=== PATIENT | female | born 1950 | race Caucasian/White ===

== ENCOUNTER 2018-05-08 10:03 | Observation (INO) | payer MEDICARE, OTHER ==
[~2018-05-08] VITALS: Ht 157.5 cm; Wt 70.8 kg
[~2018-05-08 10:03] MED LIST: ASPI-496 PO; BACL-19 PO; CAFF200T38 PO; CALC1TAB86 PO; CHOL10003 PO; HYDR-3240 PO; LOVA40TA2 PO; PANT20TA3 PO; POTA99TA2 PO
[2018-05-08] MEDS ORDERED: KETOROLAC 30 MG/1 ML ONE (10:20)
[2018-05-08] MEDS ORDERED: DIAZEPAM 5 MG TABLET ONE (10:20)
[2018-05-08] MEDS ORDERED: KETOROLAC 30 MG/1 ML IV ONE (10:30)
[2018-05-08] MEDS ORDERED: DIAZEPAM 5 MG TABLET PO ONE (10:30)
[2018-05-08] MEDS ORDERED: KETOROLAC 30 MG/1 ML IM ONE (10:30)
[2018-05-08] MEDS ORDERED: SODIUM CHLORIDE FLUSH 10ML SYR IVF ONE (12:00)
[2018-05-08] MEDS ORDERED: ONDANSETRON ODT 4 MG PO ONE (12:00)
[2018-05-08] MEDS ORDERED: ONDANSETRON ODT 4 MG ONE (12:19)
[2018-05-08] MEDS ORDERED: MORPHINE SULFATE 4 MG/ML, 1ML ONE ×2 (12:20→13:01)
[2018-05-08] MEDS: MORPHINE SULFATE 4 MG/ML, 1ML IVPush PRN ×2 (12:22→13:02)
[2018-05-08 13:10] LABS: CULTURE INDICATED? YES; MICROSCOPIC INDICATED
[2018-05-08 14:21] LABS: ALBUMIN 3.7 g/dL (3.4-5.0); ANION GAP 5 mmol/L (5-15); BASOPHILS # (AUTO) 0.04 x10^3/uL (0-0.1); BASOPHILS % (AUTO) 0 % (0-1); CHLORIDE 106 mmol/L (98-107); EOSINOPHILS # (AUTO) 0.09 x10^3/uL (0-0.4); EOSINOPHILS % (AUTO) 1 % (1-7); LYMPHOCYTES # (AUTO) 1.75 x10^3/uL (1-3.4); LYMPHOCYTES % (AUTO) 17 % (22-44); MD NO; MEAN CORPUSCULAR HEMOGLOBIN 32.4 pg (27.0-34.8); MEAN CORPUSCULAR HGB CONC 34.1 g/dL (32.4-35.8); MEAN CORPUSCULAR VOLUME 94.9 fL (80-100); MEAN PLATELET VOLUME 7.9 fL (7.4-10.4); MONOCYTES # (AUTO) 0.48 x10^3/uL (0.2-0.8); MONOCYTES % (AUTO) 5 % (2-9); NEUTROPHILS # (AUTO) 8.26 x10^3/uL (1.8-6.8); NEUTROPHILS % (AUTO) 78 % (42-75); PLATELET COUNT 250 x10^3/uL (130-400); RED BLOOD COUNT 4.42 x10^6/uL (3.82-5.3); RED CELL DISTRIBUTION WIDTH 12.2 % (9.6-15.2)
[2018-05-08 14:22] LABS: CREATININE 1.23 mg/dL (0.55-1.02)
[2018-05-08 14:47] VITALS: BP 130/77
[2018-05-08] MEDS ORDERED: hydrALAzine 20 MG/ML, 1ML IVPush PRN (15:00)
[2018-05-08] MEDS: HEPARIN 5,000 UNITS/ML, 1ML SQ SCH (15:13)
[2018-05-08] MEDS: OXYcodone IR 5MG TABLET PO PRN ×2 (15:13→19:54)
[2018-05-08] MEDS: SODIUM CHLORIDE 0.9% 1,000 ML IV SCH (15:13)
[2018-05-08] MEDS ORDERED: PHENAZOPYRIDINE 100 MG TABLET PO PRN (16:00)
[2018-05-08 16:08] VITALS: BP 130/77
[2018-05-08 18:51] VITALS: BP 96/57
[2018-05-08] MEDS: LOVASTATIN 40 MG TABLET PO SCH (20:51)
[2018-05-08] MEDS: TRIMETHOPRIM 100 MG TABLET PO SCH (20:51)
[2018-05-08] MEDS: CHOLECALCIFEROL 1,000 UNIT TABLET PO SCH (20:51)
[2018-05-09] MEDS: HEPARIN 5,000 UNITS/ML, 1ML SQ SCH ×3 (00:38→16:48)
[2018-05-09] MEDS: SODIUM CHLORIDE 0.9% 1,000 ML IV SCH (00:38)
[2018-05-09] MEDS: OXYcodone IR 5MG TABLET PO PRN ×4 (00:38→23:14)
[2018-05-09 01:42] VITALS: BP 98/61
[2018-05-09 06:07] LABS: BASOPHILS # (AUTO) 0.05 x10^3/uL (0-0.1); BASOPHILS % (AUTO) 1 % (0-1); EOSINOPHILS % (AUTO) 3 % (1-7); LYMPHOCYTES # (AUTO) 1.84 x10^3/uL (1-3.4); LYMPHOCYTES % (AUTO) 27 % (22-44); MD NO; MEAN CORPUSCULAR HEMOGLOBIN 31.7 pg (27.0-34.8); MEAN CORPUSCULAR HGB CONC 33.9 g/dL (32.4-35.8); MEAN CORPUSCULAR VOLUME 93.6 fL (80-100); MEAN PLATELET VOLUME 7.5 fL (7.4-10.4); MONOCYTES # (AUTO) 0.41 x10^3/uL (0.2-0.8); MONOCYTES % (AUTO) 6 % (2-9); NEUTROPHILS # (AUTO) 4.45 x10^3/uL (1.8-6.8); NEUTROPHILS % (AUTO) 64 % (42-75); PLATELET COUNT 215 x10^3/uL (130-400); RED BLOOD COUNT 3.97 x10^6/uL (3.82-5.3); RED CELL DISTRIBUTION WIDTH 12.2 % (9.6-15.2)
[2018-05-09 06:13] LABS: ANION GAP 6 mmol/L (5-15); CALCIUM 8.4 mg/dL (8.5-10.1); CHLORIDE 107 mmol/L (98-107)
[2018-05-09 06:14] LABS: CREATININE 1.09 mg/dL (0.55-1.02)
[2018-05-09 06:47] VITALS: BP 124/72
[2018-05-09] MEDS: SENNA/DOCUSATE TABLET PO SCH (08:34)
[2018-05-09] MEDS: CHOLECALCIFEROL 1,000 UNIT TABLET PO SCH ×2 (08:34→20:20)
[2018-05-09] MEDS: TRIMETHOPRIM 100 MG TABLET PO SCH ×2 (08:34→20:20)
[2018-05-09] MEDS: PANTOPRAZOLE 20MG TABLET PO SCH (08:34)
[2018-05-09] MEDS ORDERED: TEMPLATE NON-FORMULARY MED. (Potassium Gluconate** 99 MG) PO SCH (09:00)
[2018-05-09] MEDS ORDERED: CYCLOBENZAPRINE 10 MG TABLET PO PRN (12:00)
[2018-05-09 12:30] VITALS: BP 129/76
[2018-05-09] MEDS ORDERED: ONDANSETRON ODT 4 MG PO PRN (14:00)
[2018-05-09 19:03] VITALS: BP 108/68
[2018-05-09] MEDS: LOVASTATIN 40 MG TABLET PO SCH (20:20)
[2018-05-10 01:39] VITALS: BP 118/72
[2018-05-10] MEDS: HEPARIN 5,000 UNITS/ML, 1ML SQ SCH ×2 (03:47→12:04)
[2018-05-10] MEDS: OXYcodone IR 5MG TABLET PO PRN (03:53)
[2018-05-10 05:46] LABS: CHLORIDE 106 mmol/L (98-107)
[2018-05-10 05:52] LABS: ANION GAP 9 mmol/L (5-15); CALCIUM 8.7 mg/dL (8.5-10.1)
[2018-05-10 06:59] VITALS: BP 93/54
[2018-05-10] MEDS ORDERED: DULOXETINE 30 MG CAPSULE.DR PO SCH (09:00)
[2018-05-10] MEDS: SENNA/DOCUSATE TABLET PO SCH (09:34)
[2018-05-10] MEDS: CHOLECALCIFEROL 1,000 UNIT TABLET PO SCH (09:34)
[2018-05-10] MEDS: PANTOPRAZOLE 20MG TABLET PO SCH (09:34)
[2018-05-10] MEDS: TRIMETHOPRIM 100 MG TABLET PO SCH (09:34)
[2018-05-10] MEDS ORDERED: OXYC5TAB3 PO (11:54)
[2018-05-10 13:09] VITALS: BP 117/72
[2018-05-10] MEDS ORDERED: SULF1TAB24 PO (13:18)
== END 2018-05-10 15:00 | disposition home or self-care (01) ==
LOC: ED 13:26 → EDIP 13:54 → 3NE 14:35 → DCLOUNGE 05-10 14:45
PROVIDERS: ADMIT Hospitalist; ATTEND Hospitalist
DX: M25.551 Pain in right hip (principal); N17.9 Acute kidney failure, unspecified; N39.0 Urinary tract infection, site not specified; E78.5 Hyperlipidemia, unspecified; K21.9 Gastro-esophageal reflux disease without esophagitis; E11.9 Type 2 diabetes mellitus without complications; E78.00 Pure hypercholesterolemia, unspecified; G89.29 Other chronic pain; I10 Essential (primary) hypertension; M51.16 Intervertebral disc disorders with radiculopathy, lumbar region; M51.17 Intervertebral disc disorders with radiculopathy, lumbosacral region; Z87.891 Personal history of nicotine dependence; Z88.1 Allergy status to other antibiotic agents; Z91.81 History of falling
CPT/HCPCS: 36415; 72110; 73502; 80048; 81001; 82040; 85025; 87077; 87086; 87186; 96372; 96374; 97162; 99285; G0378; G8978; G8979; G8980; J1644; J1885; J7030; Q0162